=== PATIENT | female | born 1940 | race African-American/Black ===

== ENCOUNTER 2018-04-10 23:36 | Emergency (ER) | payer MEDICARE, OTHER ==
[2018-04-11] MEDS: HYDROmorphONE 2 MG/ML SYG IM (02:12)
== END 2018-04-11 03:00 | disposition home or self-care (01) ==
LOC: FTE 23:36
DX: M06.9 Rheumatoid arthritis, unspecified (principal); B86 Scabies; E11.9 Type 2 diabetes mellitus without complications; Z79.82 Long term (current) use of aspirin; Z79.84 Long term (current) use of oral hypoglycemic drugs; Z87.891 Personal history of nicotine dependence
CPT/HCPCS: 96372; 99284-25